=== PATIENT | male | born 1985 | race Caucasian/White ===

== ENCOUNTER 2017-12-25 13:56 | Emergency (ER) | payer BC, OTHER ==
[2017-12-25 14:35] VITALS: BP 159/103
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
== END 2017-12-25 15:50 | disposition home or self-care (01) ==
LOC: UCEAST 13:56
DX: J32.9 Chronic sinusitis, unspecified (principal); F17.210 Nicotine dependence, cigarettes, uncomplicated
CPT/HCPCS: 99202; G0463

== ENCOUNTER 2018-10-30 10:29 | Emergency (ER) | payer SELFPAY ==
[2018-10-30 10:43] VITALS: BP 160/84
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
[2018-10-30] MEDS ORDERED: cefTRIAXone VIAL(*) 1,000 MG VIAL IM ONE (10:51)
[2018-10-30] MEDS ORDERED: Lidocaine 1% MPF ** 5 ML VIAL INJ ONE (10:51)
== END 2018-10-30 12:09 | disposition home or self-care (01) ==
LOC: UCEAST 10:29
DX: H60.12 Cellulitis of left external ear (principal); F17.210 Nicotine dependence, cigarettes, uncomplicated
CPT/HCPCS: 96372; 99212; G0463; J0696